=== PATIENT | female | born 1985 | race Caucasian/White ===

== ENCOUNTER → 2017-05-25 | Outpatient (CLI) | payer OTHER | LOC: M RAD 10:59 | DX: Z34.80 Encounter for supervision of other normal pregnancy, unspecified trimester (principal) | CPT/HCPCS: 76801 ==

== ENCOUNTER → 2017-09-04 | Outpatient (CLI) | payer OTHER | LOC: M RAD 11:51 | DX: Z34.82 Encounter for supervision of other normal pregnancy, second trimester (principal) | CPT/HCPCS: 76811 ==

== ENCOUNTER → 2017-09-21 | Outpatient (CLI) | payer OTHER | LOC: M RAD 12:33 | DX: Z34.82 Encounter for supervision of other normal pregnancy, second trimester (principal) | CPT/HCPCS: 76816 ==

== ENCOUNTER → 2017-11-03 | Outpatient (CLI) | payer OTHER ==
[2017-11-03 17:51] LABS: BASO % 0.3 % (0.0-1.0); EOS # 0.1 10^3/uL (0.0-0.50); EOS % 0.6 % (0.0-3.0); HEMATOCRIT 31.1 % (36.0-47.0); HEMOGLOBIN 10.2 g/dl (12.0-15.5); IMMATURE GRANULOCYTE % 0.6 % (0-3.0); LYMPH # 1.4 10^3/uL (1.5-4.5); LYMPH % 12.9 % (24.0-44.0); MEAN CORPUSCULAR HEMOGLOBIN 30.2 pg (27.0-33.0); MEAN CORPUSCULAR HGB CONC 32.8 g/dl (32.0-36.5); MONO # 0.5 10^3/uL (0.0-0.8); MONO % 4.7 % (0.0-5.0); NEUTROPHILS # 8.8 10^3/uL (1.8-7.7); NEUTROPHILS % 80.9 % (36.0-66.0); PLATELET COUNT, AUTOMATED 270 10^3/uL (150-450); RED BLOOD COUNT 3.38 10^6/uL (4.00-5.40); RED CELL DISTRIBUTION WIDTH 14.4 % (11.5-14.5); WHITE BLOOD COUNT 10.9 10^3/uL (4.0-10.0)
[2017-11-03 18:39] LABS: GLUCOSE CHALLENGE TEST 1 HOUR 123 MG/DL (LESS THAN 140)
== END ==
LOC: M WUC 12:55
DX: Z34.82 Encounter for supervision of other normal pregnancy, second trimester (principal)
CPT/HCPCS: 82950

== ENCOUNTER → 2017-12-03 | Outpatient (REF) | payer OTHER | LOC: M LAB REF 16:45 | DX: J06.9 Acute upper respiratory infection, unspecified (principal) ==

== ENCOUNTER → 2018-01-03 | Outpatient (REF) | payer OTHER | LOC: M LAB REF 13:32 | DX: Z34.83 Encounter for supervision of other normal pregnancy, third trimester (principal) ==

== ENCOUNTER → 2018-05-01 | Outpatient (REF) | payer OTHER ==
[~2018-05-01] MED LIST: IBUP-1114 PO; IBUP80TA PO; IRON27TA2 PO; MAPA500T2 PO; PRENTAB9 PO; VITAPRTA PO
[2018-05-03 14:22] LABS: HPV HYBRID CAPTURE II Negative (Negative)
== END ==
LOC: M LAB REF 17:25
PROVIDERS: ATTEND Advanced Practice Midwife
DX: Z12.4 Encounter for screening for malignant neoplasm of cervix (principal); Z11.51 Encounter for screening for human papillomavirus (HPV)

== ENCOUNTER → 2019-01-14 | Outpatient (CLI) | payer OTHER ==
[2019-01-14 12:31] LABS: HEMATOCRIT 42.7 % (36.0-47.0); HEMOGLOBIN 13.3 g/dl (12.0-15.5); MEAN CORPUSCULAR HEMOGLOBIN 29.5 pg (27.0-33.0); MEAN CORPUSCULAR HGB CONC 31.1 g/dl (32.0-36.5); MEAN CORPUSCULAR VOLUME 94.7 fl (80.0-96.0); PLATELET COUNT, AUTOMATED 302 10^3/uL (150-450); RED BLOOD COUNT 4.51 10^6/uL (4.00-5.40); WHITE BLOOD COUNT 8.5 10^3/uL (4.0-10.0)
[2019-01-14 12:35] LABS: BLOOD UREA NITROGEN 10 MG/DL (7-18); CALCIUM LEVEL 9.5 MG/DL (8.5-10.1); CARBON DIOXIDE LEVEL 27 MEQ/L (21-32); CHLORIDE LEVEL 109 MEQ/L (98-107); CREATININE FOR GFR 0.82 MG/DL (0.55-1.30); GLOMERULAR FILTRATION RATE > 60.0 (>60); GLUCOSE, FASTING 85 MG/DL (70-100); POTASSIUM SERUM 3.8 MEQ/L (3.5-5.1); SODIUM LEVEL 141 MEQ/L (136-145)
[2019-01-14 12:51] LABS: BACTERIA, URINE AUTO 1+ (NEGATIVE); CALCIUM OXALATE CRYSTALS SMALL; MUCUS, URINE SMALL (NEGATIVE); RBC, URINE AUTO TNTC /HPF (0-3); SQUAMOUS EPITHELIAL CELL UR AU 12 /HPF (0-6); WBC, URINE AUTO 20 /HPF (0-3)
== END ==
LOC: M WUC 09:10
PROVIDERS: ATTEND Nurse Practitioner Family
DX: R10.32 Left lower quadrant pain (principal)

== ENCOUNTER → 2019-02-04 | Outpatient (REF) | payer OTHER ==
[2019-02-04 21:40] LABS: APPEARANCE, URINE HAZY (CLEAR); BACTERIA, URINE AUTO NEGATIVE (NEGATIVE); BILIRUBIN, URINE AUTO NEGATIVE (NEGATIVE); BLOOD, URINE BLOOD 3+ (NEGATIVE); CALCIUM OXALATE CRYSTALS SMALL; COLOR, URINE YELLOW (YELLOW); GLUCOSE, URINE (UA) AUTO NEGATIVE (NEGATIVE); KETONE, URINE AUTO NEGATIVE (NEGATIVE); LEUKOCYTE ESTERASE, URINE AUTO TRACE (NEGATIVE); MUCUS, URINE SMALL (NEGATIVE); NITRITE, URINE AUTO NEGATIVE (NEGATIVE); PROTEIN, URINE AUTO 1+ mg/dL (NEGATIVE); RBC, URINE AUTO TNTC /HPF (0-3); SPECIFIC GRAVITY URINE AUTO 1.027 (1.002-1.035); SQUAMOUS EPITHELIAL CELL UR AU 2 /HPF (0-6); WBC, URINE AUTO 9 /HPF (0-3)
== END ==
LOC: M LAB REF 09:21
PROVIDERS: ATTEND Physician Assistant Medical
DX: N39.0 Urinary tract infection, site not specified (principal)

== ENCOUNTER 2019-04-02 08:41 | Emergency (ER) | payer OTHER ==
[~2019-04-02] VITALS: Ht 167.6 cm; Wt 81.0 kg
[2019-04-02] MEDS ORDERED: PORTTAB PO (08:48)
[2019-04-02] MEDS ORDERED: NS 1,000 ML IV ONE (09:30)
[2019-04-02] MEDS ORDERED: KETOROLAC 30 MG/ML VIAL (J1885) IV ONE (09:30)
[2019-04-02] MEDS ORDERED: ONDANSETRON 4MG/2ML VIAL (J2405) IV ONE (09:30)
[2019-04-02 09:47] LABS: BASO # 0.1 10^3/uL (0.0-0.2); BASO % 0.9 % (0.0-1.0); EOS # 0.1 10^3/uL (0.0-0.5); EOS % 0.7 % (0.0-3.0); HEMATOCRIT 41.9 % (36.0-47.0); HEMOGLOBIN 12.9 g/dl (12.0-15.5); LYMPH # 1.4 10^3/uL (1.5-5.0); LYMPH % 20.6 % (24.0-44.0); MEAN CORPUSCULAR HEMOGLOBIN 28.5 pg (27.0-33.0); MEAN CORPUSCULAR HGB CONC 30.8 g/dl (32.0-36.5); MEAN CORPUSCULAR VOLUME 92.7 fl (80.0-96.0); MONO # 0.3 10^3/uL (0.0-0.8); MONO % 3.9 % (0.0-5.0); NEUTROPHILS # 4.9 10^3/uL (1.5-8.5); NEUTROPHILS % 73.6 % (36.0-66.0); PLATELET COUNT, AUTOMATED 269 10^3/uL (150-450); RED BLOOD COUNT 4.52 10^6/uL (4.00-5.40); WHITE BLOOD COUNT 6.7 10^3/uL (4.0-10.0)
[2019-04-02 10:08] LABS: ALBUMIN 3.6 GM/DL (3.2-5.2); ALT/SGPT 13 U/L (12-78); BILIRUBIN,DIRECT < 0.1 MG/DL (0.0-0.2); BILIRUBIN,TOTAL 0.3 MG/DL (0.2-1.0); LIPASE 72 U/L (73-393); TOTAL PROTEIN 7.1 GM/DL (6.4-8.2)
[2019-04-02] MEDS ORDERED: CIPR-249 PO (10:25)
[2019-04-02] MEDS ORDERED: ONDA4TAB6 PO (10:25)
[2019-04-02 10:41] VITALS: BP 122/79
== END 2019-04-02 10:55 | disposition home or self-care (01) ==
LOC: M ED 08:41
DX: N30.00 Acute cystitis without hematuria (principal); Z79.3 Long term (current) use of hormonal contraceptives
CPT/HCPCS: 36415; 80047; 80076; 81001; 83690; 85025; 87086; 96374; 96375; 99284; J1885; J2405

== ENCOUNTER → 2019-08-05 | Outpatient (REF) | payer OTHER ==
[~2019-08-05] MED LIST changes: +CIPR-249 PO; +ONDA4TAB6 PO; +PORTTAB PO
[2019-08-06 11:47] LABS: APPEARANCE, URINE TURBID (CLEAR); BACTERIA, URINE AUTO 1+ (NEGATIVE); BILIRUBIN, URINE AUTO NEGATIVE (NEGATIVE); BLOOD, URINE BLOOD 1+ (NEGATIVE); COLOR, URINE YELLOW (YELLOW); GLUCOSE, URINE (UA) AUTO NEGATIVE (NEGATIVE); KETONE, URINE AUTO NEGATIVE (NEGATIVE); LEUKOCYTE ESTERASE, URINE AUTO 3+ (NEGATIVE); MUCUS, URINE SMALL (NEGATIVE); NITRITE, URINE AUTO NEGATIVE (NEGATIVE); PROTEIN, URINE AUTO 1+ mg/dL (NEGATIVE); RBC, URINE AUTO 16 /HPF (0-3); SPECIFIC GRAVITY URINE AUTO 1.019 (1.002-1.035); SQUAMOUS EPITHELIAL CELL UR AU 3 /HPF (0-6); UROBILINOGEN, URINE AUTO 0.2 mg/dL (0.0-2.0); WBC, URINE AUTO 80 /HPF (0-3)
== END ==
LOC: M LAB REF 10:58
PROVIDERS: ATTEND Physician Assistant Medical
DX: N39.0 Urinary tract infection, site not specified (principal)

== ENCOUNTER → 2019-08-30 | Outpatient (REF) | payer OTHER ==
[2019-08-30 17:44] LABS: APPEARANCE, URINE CLOUDY (CLEAR); BACTERIA, URINE AUTO 3+ (NEGATIVE); BILIRUBIN, URINE AUTO NEGATIVE (NEGATIVE); BLOOD, URINE BLOOD NEGATIVE (NEGATIVE); COLOR, URINE AMBER (YELLOW); GLUCOSE, URINE (UA) AUTO NEGATIVE (NEGATIVE); KETONE, URINE AUTO NEGATIVE (NEGATIVE); LEUKOCYTE ESTERASE, URINE AUTO 2+ (NEGATIVE); MUCUS, URINE LARGE (NEGATIVE); NITRITE, URINE AUTO POSITIVE (NEGATIVE); PROTEIN, URINE AUTO 1+ mg/dL (NEGATIVE); RBC, URINE AUTO 3 /HPF (0-3); SPECIFIC GRAVITY URINE AUTO 1.025 (1.002-1.035); SQUAMOUS EPITHELIAL CELL UR AU 2 /HPF (0-6); WBC, URINE AUTO 84 /HPF (0-3)
== END ==
LOC: M LAB 17:14
PROVIDERS: ATTEND Physician Assistant Medical
DX: R30.0 Dysuria (principal)

== ENCOUNTER → 2019-10-28 | Outpatient (REF) | payer OTHER ==
[2019-10-28 19:05] LABS: AMORPHOUS SEDIMENT SMALL (NEGATIVE); APPEARANCE, URINE CLOUDY (CLEAR); BACTERIA, URINE AUTO 1+ (NEGATIVE); BILIRUBIN, URINE AUTO NEGATIVE (NEGATIVE); BLOOD, URINE BLOOD NEGATIVE (NEGATIVE); COLOR, URINE YELLOW (YELLOW); GLUCOSE, URINE (UA) AUTO NEGATIVE (NEGATIVE); KETONE, URINE AUTO NEGATIVE (NEGATIVE); LEUKOCYTE ESTERASE, URINE AUTO 3+ (NEGATIVE); MUCUS, URINE SMALL (NEGATIVE); NITRITE, URINE AUTO NEGATIVE (NEGATIVE); PROTEIN, URINE AUTO NEGATIVE (NEGATIVE); RBC, URINE AUTO 3 /HPF (0-3); SPECIFIC GRAVITY URINE AUTO 1.016 (1.002-1.035); SQUAMOUS EPITHELIAL CELL UR AU 5 /HPF (0-6); UROBILINOGEN, URINE AUTO 0.2 mg/dL (0.0-2.0); WBC, URINE AUTO 7 /HPF (0-3)
== END ==
LOC: M LAB REF 17:12
PROVIDERS: ATTEND Physician Assistant Medical
DX: N39.0 Urinary tract infection, site not specified (principal)

== ENCOUNTER → 2019-11-19 | Outpatient (REF) | payer OTHER ==
[2019-11-19 22:12] LABS: APPEARANCE, URINE HAZY (CLEAR); BACTERIA, URINE AUTO NEGATIVE (NEGATIVE); BILIRUBIN, URINE AUTO NEGATIVE (NEGATIVE); BLOOD, URINE BLOOD NEGATIVE (NEGATIVE); CALCIUM OXALATE CRYSTALS SMALL; COLOR, URINE YELLOW (YELLOW); GLUCOSE, URINE (UA) AUTO NEGATIVE (NEGATIVE); KETONE, URINE AUTO NEGATIVE (NEGATIVE); LEUKOCYTE ESTERASE, URINE AUTO 2+ (NEGATIVE); MUCUS, URINE SMALL (NEGATIVE); NITRITE, URINE AUTO NEGATIVE (NEGATIVE); PROTEIN, URINE AUTO NEGATIVE (NEGATIVE); RBC, URINE AUTO 2 /HPF (0-3); SQUAMOUS EPITHELIAL CELL UR AU 6 /HPF (0-6); UROBILINOGEN, URINE AUTO 0.2 mg/dL (0.0-2.0); WBC, URINE AUTO 12 /HPF (0-3)
== END ==
LOC: M LAB REF 21:42
PROVIDERS: ATTEND Physician Assistant
DX: N39.0 Urinary tract infection, site not specified (principal)

== ENCOUNTER → 2020-01-01 | Outpatient (REF) | payer OTHER ==
[2020-01-02 00:04] LABS: APPEARANCE, URINE HAZY (CLEAR); BACTERIA, URINE AUTO NEGATIVE (NEGATIVE); BILIRUBIN, URINE AUTO NEGATIVE (NEGATIVE); BLOOD, URINE BLOOD 1+ (NEGATIVE); COLOR, URINE STRAW (YELLOW); GLUCOSE, URINE (UA) AUTO NEGATIVE (NEGATIVE); KETONE, URINE AUTO NEGATIVE (NEGATIVE); LEUKOCYTE ESTERASE, URINE AUTO 3+ (NEGATIVE); MUCUS, URINE SMALL (NEGATIVE); NITRITE, URINE AUTO NEGATIVE (NEGATIVE); PROTEIN, URINE AUTO NEGATIVE (NEGATIVE); RBC, URINE AUTO 6 /HPF (0-3); SPECIFIC GRAVITY URINE AUTO 1.002 (1.002-1.035); SQUAMOUS EPITHELIAL CELL UR AU 7 /HPF (0-6); UROBILINOGEN, URINE AUTO 0.2 mg/dL (0.0-2.0); WBC, URINE AUTO 13 /HPF (0-3)
== END ==
LOC: M LAB REF 23:19
PROVIDERS: ATTEND Physician Assistant
DX: N39.0 Urinary tract infection, site not specified (principal)

== ENCOUNTER 2020-04-23 04:30 | Emergency (ER) | payer OTHER ==
[~2020-04-23] VITALS: Ht 167.6 cm; Wt 92.6 kg
--- OUTSIDE RECORDS SUMMARY | 2020-04-23 04:35 | CCD ---
Author Author [facility] Organization [facility] Address Unknown Phone Unavailable Support Name Relationship Address Phone [place] [address] CONVERGYS Next Of [address] [place] [address] STREAM Next Of [address] [place] [address] NAPOLEON BLANCO Next Of Kin [address] [place] [address] HARSHAD Geraldo REIS Next Of Kin [address] [place] [address] Re-disclosure Warning The records that you are about to access may contain information from federally-assisted alcohol or drug abuse programs. If such information is present, then the following federally mandated warning applies: This information has been disclosed to you from records protected by federal confidentiality rules (42 CFR part 2). The federal rules prohibit you from making any further disclosure of this information unless further disclosure is expressly permitted by the written consent of the person to whom it pertains or as otherwise permitted by 42 CFR part 2. A general authorization for the release of medical or other information is NOT sufficient for this purpose. The Federal rules restrict any use of the information to criminally investigate or prosecute any alcohol or drug abuse patient.The records that you are about to access may contain highly sensitive health information, the redisclosure of which is protected by Article 27-F of the [place] State Public Health law. If you continue you may have access to information: Regarding HIV / AIDS; Provided by facilities licensed or operated by the [facility] Office of Mental Health; or Provided by the [facility] Office for People With Developmental Disabilities. If such information is present, then the following [facility] mandated warning applies: This information has been disclosed to you from confidential records which are protected by state law. State law prohibits you from making any further disclosure of this information without the specific written consent of the person to whom it pertains, or as otherwise permitted by law. Any unauthorized further disclosure in violation of state law may result in a fine or group home sentence or both. A general authorization for the release of medical or other information is NOT sufficient authorization for further disc losure. Family History Family Member Name Family Member Gender Family Member Status Date o f Status Description Data Source(s) Unknown Unknown Problem MEDENT ([facility]) Unknown Unknown Problem MEDENT ([facility]) Medications Medication Brand Name Start Date Product Form Dose Route Admi nistrative Instructions Pharmacy Instructions Status Indications Reaction Description Data Source(s) 150 mg 01/12/2020 12:00:00 AM EST tablet 2 TAKE ONE TABLET BY MOUTH ONCE FOR ONE DAY TAKE ONE TABLET BY MOUTH ONCE FOR ONE DAY SOLD: 01/12/2020 [facility] Cephalexin 500 MG Oral Capsule CEPHALEXIN 01/01/2020 12:00:00 AM EDT capsule 21 TAKE ONE CAPSULE BY MOUTH THREE TIMES A DAY FOR 7 DAYS TAKE ONE CAPSULE BY MOUTH THREE TIMES A DAY FOR 7 DAYS SOLD: 01/01/2020 [facility] Metronidazole 500 MG Oral Tablet METRONIDAZOLE 11/19/2019 12:0 0:00 AM EDT tablet 14 TAKE ONE TABLET BY MOUTH TWICE A DAY TAKE ONE TABLET BY MOUTH TWICE A DAY SOLD: 11/19/2019 [facility] Cephalexin 500 MG Oral Capsule CEPHALEXIN 10/28/2019 12:00:00 AM EDT capsule 15 TAKE ONE CAPSULE BY MOUTH THREE TIMES A DAY FOR 5 DAYS TAKE ONE CAPSULE BY MOUTH THREE TIMES A DAY FOR 5 DAYS SOLD: 10/28/2019 [facility] 500 mg 09/15/2019 12:00:00 AM EDT tablet 14 TAKE ONE TABLET BY MOUTH TWICE A DAY FOR 7 DAYS TAKE ONE TABLET BY MOUTH TWICE A DAY FOR 7 DAYS SOLD: 2019 [facility] 100 mg 08/30/2019 12:00:00 AM EDT capsule 14 TAKE ONE CAPSULE BY MOUTH TWICE A DAY FOR 7 DAYS TAKE ONE CAPSULE BY MOUTH TWICE A DAY FOR 7 DAYS SOLD: 08/30/2019 [facility] 300 mg 08/05/2019 12:00:00 AM EDT capsule 14 TAKE ONE CAPSULE BY MOUTH EVERY 12 HOURS FOR 7 DAYS TAKE ONE CAPSULE BY MOUTH EVERY 12 HOURS FOR 7 DAYS SO LD: 08/05/2019 [facility] 100 mg 07/19/2019 12:00:00 AM EDT capsule 14 TAKE ONE CAPSULE BY MOUTH TWICE A DAY FOR 7 DAYS TAKE ONE CAPSULE BY MOUTH TWICE A DAY FOR 7 DAYS SOLD: 07/19/2019 [facility] Metronidazole 500 MG Oral Tablet METRONIDAZOLE 07/06/2019 12:0 0:00 AM EDT tablet 14 TAKE ONE TABLET BY MOUTH TWICE A DAY FOR 7 DAYS TAKE ONE TABLET BY MOUTH TWICE A DAY FOR 7 DAYS SOLD: 07/06/2019 [facility] 10 mg 06/28/2019 12:00:00 AM EDT capsule 30 TAKE ONE CAPSULE BY MOUTH EVERY DAY TAKE ONE CAPSULE BY MOUTH EVERY DAY SOLD: 07/06/2019 [facility] Lillow 28 Day Pack 0.15-0.03 mg LEVONORGESTREL/ETHINYL ESTRA DIOL 06/27/2019 12:00:00 AM EDT tablet 84 TAKE ONE TABLET BY MOUTH EVERY DAY TAKE ONE TABLET BY MOUTH EVERY DAY SOLD: 09/15/2019 [facility] Day [facility] 0.15-0.03 mg LEVONORGESTREL/ETHINYL ESTRA DIOL 06/27/2019 12:00:00 AM EDT tablet 84 TAKE ONE TABLET BY MOUTH EVERY DAY TAKE ONE TABLET BY MOUTH EVERY DAY SOLD: 06/28/2019 [facility] venlafaxine 37.5 MG Oral Tablet VENLAFAXINE HCL 05/28/2019 12:00 :00 AM EDT tablet 30 TAKE ONE TABLET BY MOUTH EVERY D AY TAKE ONE TABLET BY MOUTH EVERY DAY SOLD: 05/28/2019 [facility] 875 mg 05/05/2019 12:00:00 AM EST tablet 20 TAKE ONE TABLET BY MOUTH EVERY 12 HOURS FOR 10 DAYS TAKE ONE TABLET BY MOUTH EVERY 12 HOURS FOR 10 DAYS SO LD: 05/05/2019 [facility] 20 mg 04/15/2019 12:00:00 AM EST capsule,delayed release (DR/EC) 30 TAKE ONE CAPSULE BY MOUTH EVERY DAY TAKE ONE CAPSULE BY MOUTH EVERY DAY SOLD: 04/15/2019 [facility] 500 mg 04/02/2019 12:00:00 AM EST tablet 20 TAKE ONE TABLET BY MOUTH TWICE A DAY TAKE ONE TABLET BY MOUTH TWICE A DAY SOLD: 04/02/2019 [facility] 4 mg 04/02/2019 12:00:00 AM EST tablet,disintegrating 1 6 DISSOLVE ONE TABLET ON TONGUE EVERY 6 TO 8 HOURS NEEDED FOR NAUSEA AND VOMITING DISSOLVE ONE TABLET ON TONGUE EVERY 6 TO 8 HOURS NEEDED FOR NAUSEA AND VOMITING SOLD: 04/02/2019 [facility] 500 mg 02/28/2019 12:00:00 AM EST tablet 14 TAKE ONE TABLET BY MOUTH TWICE A DAY FOR 7 DAYS TAKE ONE TABLET BY MOUTH TWICE A DAY FOR 7 DAYS SOLD: 2018 [facility] 50 mcg/actuation 02/28/2019 12:00:00 AM EST spray,suspension 16 SPRAY TWO SPRAYS IN EACH NOSTRIL ONCE A DAY SPRAY TWO SPRAYS IN EACH NOSTRIL ONCE A DAY SOLD: 02/28/2019 [facility] 10 mg 11/10/2018 12:00:00 AM EDT tablet 30 TAKE ONE TABLET BY MOUTH EVERY DAY TAKE ONE TABLET BY MOUTH EVERY DAY SOLD: 02/28/2019 [facility] 0.15-0.03 mg 08/02/2018 12:00:00 AM EDT tablet 84 TAKE ONE TABLET BY MOUTH EVERY DAY TAKE ONE TABLET BY MOUTH EVERY DAY SOLD: 03/16/2019 [facility] Insurance Providers Payer name Policy type / Coverage type Policy ID Covered green party ID Covered green party's relationship to larsen Policy Larsen Plan Information [facility] [id number] SP [id number] [facility] Health Maintenance Organization (HMO) [id number] Self [id number] [facility] Health Maintenance Organization (HMO) [id number] Self [id number] [facility] Health Maintenance Organization (O) [id number] Self [id number] SELF PAY O [id number] S [id number] [facility] O [id number] S [id number] [facility] COMM[facility]AN MCDO [id number] SP [id number] [facility] Health Maintenance Organization (HMO) [id number] Self [id number] [facility] Health Maintenance Organization (HMO) Self MEDICAID [id number] SP [id number] Results ID Date Data Source [id number] 03/11/2020 12:00:00 AM EST [facility] Name Value Range Interpretation Code Description Data Libertad rce(s) Supporting Document(s) SARS-CoV2 Rapid Antigen Negative [facility] This lab was ordered by [facility] and reported by [facility]. Procedure
--- OUTSIDE RECORDS SUMMARY | 2020-04-23 05:49 | CCD ---
Author Author [facility] Organization [facility] Address Unknown Phone Unavailable Support Name Relationship Address Phone [place] [address] CONVERGYS Next Of Kin [address] [place] [address] STREAM Next Of Kin [address] [place] [address] NAPOLEON BLANCO Next Of Kin [address] [place] [address] HARSHAD Geraldo REIS Next Of Kin [address] [place] [address] Re-disclosure Warning The records that you are [...] is protected by Article 27-F of the [place] State Public Health law. If you continue you may have access to information: Regarding HIV / AIDS; Provided by facilities licensed or operated by the [facility] Office of Mental Health; or Provided by the [facility] Office for People With Developmental Disabilities. If such information is present, then the following [facility] mandated warning applies: This information has been [...] law may result in a fine or half-way sentence or both. A general authorization for the release of medical or other information is NOT sufficient authorization for further disc losure. Family History Family Member Name Family Member Gender Family Member Status Date o f Status Description Data Source(s) Unknown Unknown Problem MEDENT ([facility]) Unknown Unknown Problem MEDENT ([facility], [facility]) Medications Medication Brand Name Start Date Product [...] EVERY DAY SOLD: 09/15/2019 [facility] 28 Day Pack 0.15-0.03 mg LEVONORGESTREL/ETHINYL ESTRA [...] type / Coverage type Policy ID Covered alliance party ID Covered alliance party's relationship to larsen Policy Larsen Plan Information [facility] [id number] SP [id number] [facility] [id number] SP [id number] [facility] Health Maintenance Organization (HMO) [id number] Self [id number] [facility] Health Maintenance Organization (HMO) [id number] Self [id number] [facility] Health Maintenance Organization (O) [id number] Self [id number] SELF PAY O [id number] S [id number] [facility]) O [id number] S [id number] [facility] [id number] SP [id number] [facility] Health Maintenance Organization (HMO) [id number] Self [id number] [facility] Health Maintenance Organization (O) Self MEDICAID [id number] SP [id number] Results ID Date Data Source [id number] 03/11/2020 12:00:00 AM EST [facility] Name Value Range Interpretation Code Description Data Libertad rce(s) Supporting Document(s) SARS-CoV2 Rapid Antigen Negative [facility] and reported by [facility]. Procedure
[2020-04-23] MEDS ORDERED: KETOROLAC 30 MG/ML 1ML VIAL IV ONE (06:15)
--- NOTE | 2020-04-23 06:33 | REPVR ---
PROCEDURE INFORMATION: Exam: CT Abdomen And Pelvis Without Contrast Exam date and time: 04/23/2020 5:26 AM Age: 34 years old Clinical indication: Abdominal pain; Flank; Left; Additional info: Left flank pain TECHNIQUE: Imaging protocol: Computed tomography of the abdomen and pelvis without contrast. Radiation optimization: All CT scans at this facility use at least one of these dose optimization techniques: automated exposure control; mA and/or kV adjustment per patient size (includes targeted exams where dose is matched to clinical indication); or iterative reconstruction. COMPARISON: US OBS FOLL UP OR REPEAT EACH GES 09/21/2017 12:52 PM FINDINGS: Liver: Normal. No mass. Gallbladder and bile ducts: Normal. No calcified stones. No ductal dilation. Pancreas: Normal. No ductal dilation. Spleen: Normal. No splenomegaly. Adrenal glands: Normal. No mass. Kidneys and ureters: Mild left hydroureteronephrosis to the level of a 3 mm calculus in the distal left ureter. Nonobstructive bilateral nephrolithiasis. 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 Stomach and bowel: Unremarkable. No obstruction. No mucosal thickening. Appendix: No evidence of appendicitis. Intraperitoneal space: Unremarkable. No free air. No significant fluid collection. Vasculature: Unremarkable. No abdominal aortic aneurysm. Lymph nodes: Unremarkable. No enlarged lymph nodes. Urinary bladder: Unremarkable as visualized. Reproductive: Unremarkable as visualized. Bones/joints: Unremarkable. No acute fracture. Soft tissues: Fat containing umbilical hernia. IMPRESSION: Mild left hydroureteronephrosis to the level of a 3 mm calculus in the distal left ureter. Electronically signed by: Johan Choudhury On 04/23/2020 06:11:31 AM
[2020-04-23] MEDS ORDERED: KETO10TAB PO (08:02)
[2020-04-23 08:27] VITALS: BP 124/76
== END 2020-04-23 08:20 | disposition home or self-care (01) ==
LOC: M ED 04:30
DX: N13.2 Hydronephrosis with renal and ureteral calculous obstruction (principal); Z87.442 Personal history of urinary calculi; Z79.3 Long term (current) use of hormonal contraceptives
CPT/HCPCS: 74176; 81001; 87086; 99284; J1885

== ENCOUNTER → 2020-06-07 | Outpatient (CLI) | payer SELFPAY ==
[~2020-06-07] MED LIST changes: +KETO10TAB PO
== END ==
LOC: M LABSMTC 09:30
PROVIDERS: ATTEND Pediatrics
DX: Z20.822 Contact with and (suspected) exposure to COVID-19 (principal)

== ENCOUNTER → 2020-06-21 | Outpatient (REF) | payer OTHER ==
[2020-06-21 19:11] LABS: APPEARANCE, URINE CLEAR (CLEAR); BACTERIA, URINE AUTO NEGATIVE (NEGATIVE); BILIRUBIN, URINE AUTO NEGATIVE (NEGATIVE); BLOOD, URINE BLOOD 3+ (NEGATIVE); COLOR, URINE YELLOW (YELLOW); GLUCOSE, URINE (UA) AUTO NEGATIVE (NEGATIVE); KETONE, URINE AUTO NEGATIVE (NEGATIVE); LEUKOCYTE ESTERASE, URINE AUTO TRACE (NEGATIVE); MUCUS, URINE SMALL (NEGATIVE); NITRITE, URINE AUTO NEGATIVE (NEGATIVE); PROTEIN, URINE AUTO 1+ mg/dL (NEGATIVE); RBC, URINE AUTO 3 /HPF (0-3); SPECIFIC GRAVITY URINE AUTO 1.026 (1.002-1.035); SQUAMOUS EPITHELIAL CELL UR AU 1 /HPF (0-6); WBC, URINE AUTO 10 /HPF (0-3)
== END ==
LOC: M LAB REF 16:30
PROVIDERS: ATTEND Physician Assistant Medical
DX: N39.0 Urinary tract infection, site not specified (principal)

== ENCOUNTER → 2020-10-16 | Outpatient (REF) | payer OTHER ==
[2020-10-16 18:11] LABS: APPEARANCE, URINE CLOUDY (CLEAR); BACTERIA, URINE AUTO NEGATIVE (NEGATIVE); BILIRUBIN, URINE AUTO NEGATIVE (NEGATIVE); BLOOD, URINE BLOOD 3+ (NEGATIVE); COLOR, URINE YELLOW (YELLOW); GLUCOSE, URINE (UA) AUTO NEGATIVE (NEGATIVE); KETONE, URINE AUTO NEGATIVE (NEGATIVE); LEUKOCYTE ESTERASE, URINE AUTO NEGATIVE (NEGATIVE); MUCUS, URINE SMALL (NEGATIVE); NITRITE, URINE AUTO NEGATIVE (NEGATIVE); PROTEIN, URINE AUTO 1+ mg/dL (NEGATIVE); RBC, URINE AUTO TNTC /HPF (0-3); SPECIFIC GRAVITY URINE AUTO 1.019 (1.002-1.035); SQUAMOUS EPITHELIAL CELL UR AU 8 /HPF (0-6); UROBILINOGEN, URINE AUTO 0.2 mg/dL (0.0-2.0); WBC, URINE AUTO 4 /HPF (0-3)
== END ==
LOC: M LAB REF 17:41
PROVIDERS: ATTEND Physician Assistant
DX: N39.0 Urinary tract infection, site not specified (principal)

== ENCOUNTER 2020-10-24 23:18 | Emergency (ER) | payer OTHER ==
[~2020-10-24] VITALS: Ht 167.6 cm; Wt 86.9 kg
[2020-10-25 03:59] LABS: BASO # 0.1 10^3/uL (0.0-0.2); BASO % 0.5 % (0.0-1.0); EOS # 0.1 10^3/uL (0.0-0.5); EOS % 0.6 % (0.0-3.0); HEMATOCRIT 37.3 % (36.0-47.0); HEMOGLOBIN 12.5 g/dl (12.0-15.5); LYMPH # 1.6 10^3/uL (1.5-5.0); LYMPH % 14.7 % (24.0-44.0); MEAN CORPUSCULAR HEMOGLOBIN 30.1 pg (27.0-33.0); MEAN CORPUSCULAR HGB CONC 33.5 g/dl (32.0-36.5); MEAN CORPUSCULAR VOLUME 89.9 fl (80.0-96.0); MONO # 0.7 10^3/uL (0.0-0.8); MONO % 6.6 % (2.0-8.0); NEUTROPHILS # 8.3 10^3/uL (1.5-8.5); NEUTROPHILS % 77.3 % (36.0-66.0); PLATELET COUNT, AUTOMATED 224 10^3/uL (150-450); RED BLOOD COUNT 4.15 10^6/uL (4.00-5.40); WHITE BLOOD COUNT 10.8 10^3/uL (4.0-10.0)
[2020-10-25] MEDS ORDERED: ISOVUE-370 76% 100ML VIAL As Ordered ONE (04:06)
[2020-10-25 04:11] LABS: APPEARANCE, URINE CLEAR (CLEAR); BACTERIA, URINE AUTO 1+ (NEGATIVE); BILIRUBIN, URINE AUTO NEGATIVE (NEGATIVE); BLOOD, URINE BLOOD 1+ (NEGATIVE); COLOR, URINE YELLOW (YELLOW); GLUCOSE, URINE (UA) AUTO NEGATIVE (NEGATIVE); KETONE, URINE AUTO 1+ mg/dL (NEGATIVE); LEUKOCYTE ESTERASE, URINE AUTO 1+ (NEGATIVE); MUCUS, URINE SMALL (NEGATIVE); NITRITE, URINE AUTO NEGATIVE (NEGATIVE); PROTEIN, URINE AUTO NEGATIVE (NEGATIVE); RBC, URINE AUTO 5 /HPF (0-3); SPECIFIC GRAVITY URINE AUTO 1.016 (1.002-1.035); SQUAMOUS EPITHELIAL CELL UR AU 2 /HPF (0-6); UROBILINOGEN, URINE AUTO 0.2 mg/dL (0.0-2.0); WBC, URINE AUTO 11 /HPF (0-3)
[2020-10-25 04:39] LABS: ALBUMIN 3.6 GM/DL (3.2-5.2); BILIRUBIN,DIRECT 0.2 MG/DL (0.0-0.2); BILIRUBIN,TOTAL 0.5 MG/DL (0.2-1.0); TOTAL PROTEIN 6.6 GM/DL (6.4-8.2)
--- NOTE | 2020-10-25 05:29 | REPVR ---
PROCEDURE INFORMATION: Exam: CT Abdomen And Pelvis With Contrast Exam date and time: 10/25/2020 4:48 AM Age: 35 years old Clinical indication: Other: Right flank pain, pyelo/appendix ws ureteral stone TECHNIQUE: Imaging protocol: Computed tomography of the abdomen and pelvis with contrast. Radiation optimization: All CT scans at this facility use at least one of these dose optimization techniques: automated exposure control; mA and/or kV adjustment per patient size (includes targeted exams where dose is matched to clinical indication); or iterative reconstruction. Contrast material: ISOVUE 370; Contrast volume: 100 ml; Contrast route: INTRAVENOUS (IV); COMPARISON: CT ABD PELVIS W/O CONTRAST 04/23/2020 5:32 AM FINDINGS: Liver: Hepatomegaly. Gallbladder and bile ducts: Normal. No calcified stones. No ductal dilation. Pancreas: Normal. No ductal dilation. Spleen: Normal. No splenomegaly. Adrenal glands: Normal. No mass. Kidneys and ureters: Moderate right hydroureteronephrosis to the level of a 7 x 5 mm calculus distal right ureter. Nonobstructive bilateral nephrolithiasis. Subcentimeter indeterminate low-attenuation exophytic lesion left kidney, too small to characterize. Stomach and bowel: Unremarkable. No obstruction. No mucosal thickening. Appendix: No evidence of appendicitis. Intraperitoneal space: Trace pelvic ascites. Vasculature: Unremarkable. No abdominal aortic aneurysm. Lymph nodes: Unremarkable. No enlarged lymph nodes. Urinary bladder: Unremarkable as visualized. Reproductive: Asymmetric enlargement the right with a simple 2 cm cyst in the right ovary. Bones/joints: Unremarkable. No acute fracture. Soft tissues: Fat containing umbilical hernia. IMPRESSION: Moderate right hydroureteronephrosis to the level of a 7 x 5 mm calculus distal right ureter. COMMENTS: Consistent with the [employer]'s Incidental Findings Committee white paper (J Am Beto Radiol 2018): Any incidental renal lesion less than 1 cm or classified as too small to characterize, or any incidental cystic renal lesion characterized as simple-appearing, is likely benign. No follow-up imaging is recommended for these lesions per consensus recommendations based on imaging criteria. Electronically signed by: Johan Choudhury On 10/25/2020 05:28:25 AM
[2020-10-25] MEDS ORDERED: CEFDINIR 300 MG CAP (OMNICEF) PO ONE (05:35)
[2020-10-25] MEDS ORDERED: KETOROLAC 30 MG/ML 1ML VIAL IV ONE (05:35)
[2020-10-25] MEDS ORDERED: TAMSULOSIN 0.4 MG CAP PO ONE (05:35)
[2020-10-25] MEDS ORDERED: PERC5TAB12 PO (06:41)
[2020-10-25] MEDS ORDERED: KETO10TAB PO (06:41)
[2020-10-25] MEDS ORDERED: FLOM0.4C39 PO (06:41)
[2020-10-25] MEDS ORDERED: CEFD1CAP8 PO (06:41)
[2020-10-25 07:15] VITALS: BP 118/58
== END 2020-10-25 07:18 | disposition home or self-care (01) ==
LOC: M ED 23:18
DX: N13.2 Hydronephrosis with renal and ureteral calculous obstruction (principal); Z87.442 Personal history of urinary calculi; Z79.3 Long term (current) use of hormonal contraceptives
CPT/HCPCS: 74177; 80047; 80076; 81001; 83690; 84702; 85025; 96374; 99284; J1885; Q9967

== ENCOUNTER 2021-01-26 07:32 | Emergency (ER) | payer OTHER ==
[~2021-01-26] VITALS: Ht 167.6 cm; Wt 86.6 kg
[~2021-01-26 07:32] MED LIST changes: +CEFD1CAP8 PO; +FLOM0.4C39 PO; +PERC5TAB12 PO
[2021-01-26] MEDS ORDERED: PRENTAB53 PO (07:38)
--- OUTSIDE RECORDS SUMMARY | 2021-01-26 07:39 | CCD ---
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 Name Role Phone Anshu Mensah Unavailable PROBLEMS No Information ALLERGIES Allergen (clinical drug ingredient) Drug/Non Drug Allergy do cumented on EMR Reaction Allergy Type Onset Date Status tamsulosin Flomax([facility] Code:[id number]) HIVES Drug Allergy Active ENCOUNTERS from 1987 to 2020-11-25 Encounter Location Date Provider Diagnosis [facility] [address] [phone] [place] [address] Nov, Anshu Mensah Right ureteral stone N20.1 and History o f kidney stones Z87.442 IMMUNIZATIONS No Information SOCIAL HISTORY Tobacco Use: Social History Observation Description Date Details (start date - stop date) Never Smoker Sex Assigned At : Social History Observation Description Sex Assigned At Unknown Language: Question Answer Notes Languages spoken: Sudanese Sexual Hx: Question Answer Notes Had sex in the last 12 months (vaginal, oral, or anal)? Yes Have you ever had an STD? No Prevention Strategies discussed: Other with Men only Use protection? No Tobacco Use: Question Answer Notes Are you a: never smoker REASON FOR REFERRAL No Information VITAL SIGNS Weight 180 lbs Nov, Weight-kg 81.65 kg Nov, Height 66 in Nov, BMI 29.05 kg/m2 Nov, Heart Rate 71 /min Nov, Respiratory Rate 17 /min Nov, Temperature 97.1 degrees Fahrenheit Nov, Oximetry 100 Nov, Blood pressure systolic 116 mm Hg Nov, Blood pressure diastolic 60 mm Hg Nov, MEDICATIONS Medication SIG (Take, Route, Frequency, Duration) Notes Start Da te End Date Status Ketorolac Tromethamine 10 MG 1 tablet with food or mil k as needed Orally every 6 hrs for 5 day(s) Not-Taking Cefdinir 300 MG as directed Orally N ot-Taking Keflex 500 MG 1 capsule Orally Four times a day for 5 day(s) Active Flomax 0.4 MG 1 capsule Orally Once a day for 30 day(s) Active Levonorgestrel-Ethinyl Estrad Active oxyCODONE-Acetaminophen 5-325 MG 1 tablet as needed Orally every 6 hr s Not-Taking Levora 0.15/30 (28) 0.15-30 MG-MCG 1 tablet Orally Once a day fo r 28 days Jun, Not-Taking PROCEDURES No Information RESULTS No Results REASON FOR VISIT [facility] ED f/u stone MEDICAL (GENERAL) HISTORY Type Description Date Medical History Gestational HTN Medical History HX UTI Medical History abd pain Medical History low back pain Medical History kidney stones Surgical History No Surgical history information Hospitalization History [facility] Goals Section No Information Health Concerns No Information MEDICAL EQUIPMENT No Information MENTAL STATUS No Information FUNCTIONAL STATUS No Information ASSESSMENTS Encounter Date Diagnosis Assessment Notes Treatment Notes Treatm ent Clinical Notes Nov, Right ureteral stone (ICD-10 - N20.1) Nov, History of kidney stones (ICD-10 - Z87.442) PLAN OF TREATMENT Treatment Notes Test Name Order Date ABDOMEN 1 VIEW (KUB) ADM 2020-11-11 Next Appt Details 1 year with KUB Reason:Kidney stones Provider Name:Anshu Mensah, 2021-11-03 3 09:30:00 AM, [address], , [place], [address], Follow Up:1 year with Marisol stones Insurance Providers Payer Name Payer Address Payer Phone Insured Name Patient Relati onship to Insured Coverage Start Date Coverage End Date R [facility] [address] [address] [facility] [phone] MARY ANNE PATRICIA [facility] COMM[facility]AN [facility] [address] [facility] [phone] MARY ANNE PATRICIA self
--- OUTSIDE RECORDS SUMMARY | 2021-01-26 07:39 | CCD ---
Author Author [facility] Organization [facility] Address Unknown Phone Unavailable Support Name Relationship Address Phone [facility] Next Of Kin [address] [place] [address] KEYSHA LEONARD Next Of Kin [address] [place] [address] [place] [address] CONVERGYS Next Of Kin [address] [place] [address] [place] Next Of Kin [address] [place] [address] NAPOLEON BLANCO Next Of Kin [address] [place] [address] Geraldo LEONARD Next Of Kin [address] [place] [address] keysha leonard ECON [address] [place] [address] Unavailable Geraldo LEONARD ECON [address] [place] [address] Unavailable Re-disclosure Warning The records that you are [...] is protected by Article 27-F of the [facility] Public Health law. If you continue you may have access to information: Regarding HIV / AIDS; Provided by facilities licensed or operated by the [facility] Office of Mental Health; or Provided by the [facility] Office for People With Developmental Disabilities. If such information is present, then the following [facility] mandated warning applies: This information has [...] law may result in a fine or usp sentence or both. A general authorization for the release of medical or other information is NOT sufficient authorization for further disc losure. Family History Family Member Name Family Member Gender Family Member Status Date o f Status Description Data Source(s) Unknown Unknown Problem MEDENT ([facility], ) Unknown Unknown Problem MEDENT ([facility]) Encounters Encounter Providers Location Date Indications Data Source(s ) [place] [address] [facility] [place] [address] 11/11/2020 12:00:00 AM EDT eCW1 ([facility]) Medications Medication Brand Name Start Date Product Form Dose Route Admi nistrative Instructions Pharmacy Instructions Status Indications Reaction Description Data Source(s) NITROFURANTOIN, MACROCRYSTALS 25 MG / Ni trofurantoin, Monohydrate 75 MG Oral Capsule 100 mg NITROFURANTOIN MONOHYD/M-CRYST 06/21/2020 12:00:00 AM EDT ca psule 14 TAKE ONE CAPSULE BY MOUTH TWICE A DAY FOR 7 DAYS TAKE ONE CAPSULE BY MOUTH TWICE A DAY FOR 7 DAYS SOLD: 06/21/2020 [facility] 150 mg 01/12/2020 12:00:00 AM EST tablet 2 TAKE ONE TABLET BY MOUTH ONCE FOR ONE DAY TAKE ONE TABLET BY MOUTH ONCE FOR ONE DAY SOLD: 01/12/2020 [facility] 150 mg 01/12/2020 12:00:00 AM EST tablet 2 TAKE ONE TABLET BY MOUTH ONCE FOR ONE DAY TAKE ONE TABLET BY MOUTH ONCE FOR ONE DAY SOLD: 12/02/2020 [facility] Cephalexin 500 MG Oral Capsule CEPHALEXIN 01/01/2020 12:00:00 AM EDT capsule 21 TAKE ONE CAPSULE BY MOUTH THREE TIMES A DAY FOR 7 DAYS TAKE ONE CAPSULE BY MOUTH THREE TIMES A DAY FOR 7 DAYS SOLD: 01/01/2020 [facility] Insurance Providers Payer name Policy type / Coverage type Policy ID Covered democrat ID Covered democrat's relationship to larsen Policy Larsen Plan Information [facility] Maintenance Organization ([facility] [id number] Self [id number] [facility] Maintenance Organization ([facility]) [id number] Self [id number] [facility] ([facility]) [id number] [facility] [id number] SP [id number] [facility] Health Maintenance Organization ([facility]) [id number] Self [id number] SELF PAY O [id number] S [id number] [facility] O [id number] S [id number] [facility] Health Maintenance Organization ([facility]) [id number] Self MEDICAID [id number] SP [id number] R [facility] SP [id number] [facility] [id number] SP [id number] [facility] [id number] SP [id number] SELF PAY ONLY [id number] SP [id number] Problems, Conditions, and Diagnoses No Information Surgeries/Procedures No Information Results ID Date Data Source [id number] 06/07/2020 12:00:00 AM EDT [facility] Name Value Range Interpretation Code Description Data Libertad rce(s) Supporting Document(s) SARS-CoV-2 (COVID-19) RNA [Presence] in Respiratory specimen by LYNNE with probe detection Not Detected [facility] This lab was ordered by [facility] and reported by [employer] ID Date Data Source [id number] 03/11/2020 12:00:00 AM EST [facility] Name Value Range Interpretation Code Description Data Libertad rce(s) Supporting Document(s) SARS-CoV2 Rapid Antigen Negative [facility] This lab was ordered by [facility] and reported by [facility]. Procedure Social History Code Duration Value Status Description Data Source(s ) Smoking 11/11/2020 12:00:00 AM EDT Never Smoker completed Never S moker eCW1 ([facility]) Vital Signs ID Date Data Source UNK Name Value Range Interpretation Code Description Data Source(s) Systolic blood pressure 116 mm[Hg] 116 mm[Hg] e CW1 ([facility]) Body weight 180 [lb_av] 180 [lb_av] eCW1 ([facility]) Body weight 81.65 kg 81.65 kg W1 ([facility]) Body height 66 [in_i] 66 [in_i] eCW1 ([facility]) Body mass index (BMI) [Ratio] 29.05 kg/m2 29.05 kg/m2 eCW1 ([facility]) Heart rate 71 /min 71 /min eCW1 ([facility]) Respiratory rate 17 /min 17 /min eCW1 ([facility]) Body temperature 97.1 [degF] 97.1 [degF] eCW1 ( [facility]) Diastolic blood pressure 60 mm[Hg] 60 mm[Hg] eCW1 ([facility])
[2021-01-26 08:23] LABS: BASO % 0.7 % (0.0-1.0); EOS # 0.1 10^3/uL (0.0-0.5); EOS % 0.9 % (0.0-3.0); HEMATOCRIT 41.1 % (36.0-47.0); HEMOGLOBIN 13.4 g/dl (12.0-15.5); LYMPH % 33.7 % (24.0-44.0); MEAN CORPUSCULAR HEMOGLOBIN 30.2 pg (27.0-33.0); MEAN CORPUSCULAR HGB CONC 32.6 g/dl (32.0-36.5); MEAN CORPUSCULAR VOLUME 92.6 fl (80.0-96.0); MONO # 0.4 10^3/uL (0.0-0.8); MONO % 6.7 % (2.0-8.0); NEUTROPHILS # 3.4 10^3/uL (1.5-8.5); NEUTROPHILS % 57.8 % (36.0-66.0); PLATELET COUNT, AUTOMATED 251 10^3/uL (150-450); RED BLOOD COUNT 4.44 10^6/uL (4.00-5.40); WHITE BLOOD COUNT 5.8 10^3/uL (4.0-10.0)
--- OUTSIDE RECORDS SUMMARY | 2021-01-26 09:08 | CCD ---
Author Author [facility] Organization [facility] Address Unknown Phone Unavailable Support Name Relationship Address Phone [facility] Next Of Kin [address] [place] [address] KEYSHA LEONARD Next Of Kin [address] [place] [address] [place] [address] CONVERGYS Next Of Kin [address] [place] [address] STREAM Next Of Kin [address] [place] [address] NAPOLEON BLANCO Next Of Kin [address] [place] [address] Geraldo LEONARD Next Of Kin [address] [place] [address] keysha leonard ECON [address] [place] [address] Unavailable Geraldo LEONARD ECON [address] [place] [address] Unavailable Re-disclosure Warning The records that you [...] is protected by Article 27-F of the [facility] Public Health law. If you continue you may have access to information: Regarding HIV / AIDS; Provided by facilities licensed or operated by the [facility] Office of Mental Health; or Provided by the [facility] Office for People With Developmental Disabilities. If such information is present, then the following [facility] mandated warning applies: This information [...] law may result in a fine or fdc sentence or both. A general authorization for the release of medical or other information is NOT sufficient authorization for further disc losure. Family History Family Member Name Family Member Gender Family Member Status Date o f Status Description Data Source(s) Unknown Unknown Problem MEDENT ([facility], ) Unknown Unknown Problem MEDENT ([facility]) Encounters Encounter Providers Location Date Indications Data Source(s ) [place]patient [address] [facility] [place] [address] 11/11/2020 12:00:00 AM EDT eCW1 ([facility]) Medications Medication Brand Name Start Date [...] type / Coverage type Policy ID Covered libertarian ID Covered libertarian's relationship to larsen Policy Larsen Plan Information [facility] Health Maintenance Organization ([facility]) [id number] Self [id number] [facility] Maintenance Organization ([facility]) [id number] Self [id number] [facility] ([facility]) [id number] Self [id number] [facility] [id number] SP [id number] [facility] Health Maintenance Organization ([facility]) [id number] Self [id number] SELF PAY O [id number] S [id number] [facility] O [id number] S [id number] [facility] Health Maintenance Organization ([facility]) [id number] Self MEDICAID [id number] SP [id number] R [facility] C[facility] [id number] SP [id number] [facility] [id number] SP [id number] [facility] [id number] SP [id number] SELF PAY ONLY [id number] SP [id number] Problems, Conditions, and Diagnoses No Information Surgeries/Procedures No Information Results ID Date Data Source [id number] 06/07/2020 12:00:00 AM EDT [facility] Name Value Range Interpretation Code Description Data Libertad rce(s) Supporting Document(s) SARS-CoV-2 (COVID-19) RNA [Presence] in Respiratory specimen by LYNNE with probe detection Not Detected [facility] This lab was ordered by [facility] and reported by [email or web address] ID Date Data Source [id number] 03/11/2020 12:00:00 AM EST [facility] Name Value Range Interpretation Code Description Data Libertad rce(s) Supporting Document(s) SARS-CoV2 Rapid Antigen Negative [facility] This lab was ordered by [facility] and reported by [facility]. Procedure Social History Code Duration Value Status Description Data Source(s ) Smoking 11/11/2020 12:00:00 AM EDT Never Smoker completed Never S moker eCW1 ([facility]) Vital Signs ID Date Data Source UNK Name Value Range Interpretation Code Description Data Source(s) Systolic blood pressure 116 mm[Hg] 116 mm[Hg] e CW1 ([facility]) Body weight 180 [lb_av] 180 [lb_av] eCW1 ([facility]) Diastolic blood pressure 60 mm[Hg] 60 mm[Hg] eCW1 ([facility]) Body weight 81.65 kg 81.65 kg eCW1 ([facility]) Body height 66 [in_i] 66 [in_i] eCW1 ([facility]) Body mass index (BMI) [Ratio] 29.05 kg/m2 29.05 kg/m2 eCW1 ([facility]) Heart rate 71 /min 71 /min eCW1 ([facility]) Respiratory rate 17 /min 17 /min eCW1 ([facility]) Body temperature 97.1 [degF] 97.1 [degF] eCW1 ( [facility])
--- NOTE | 2021-01-26 09:37 | REP ---
INDICATION: vaginal bleeding, +home preg quant 244 COMPARISON: None. TECHNIQUE: Transabdominal and transvaginal 1st trimester obstetrical ultrasound with color Doppler evaluation. FINDINGS: Anteverted uterus measures 8.5 x 4.1 x 4.6 cm. No intrauterine is identified. A 1.1 x 1.1 x 0.8 cm solid lesion is identified along the right-side of the uterus/adnexa and separate from the ovary itself which is concerning for possible ectopic although no obvious significant surrounding hypervascularity is definitely identified. Right ovary measures 2.7 x 1.3 x 2.1 cm (RI 0.53) and includes complex presumed corpus luteal cyst measuring 1.4 x 1.3 x 0.8 cm. Left ovary measures 2.5 x 1.2 x 1.3 cm (RI 0.61) and appears normal. No pelvic fluid. IMPRESSION: 1. No intrauterine . 2. 1.1 cm solid mass in the right adnexa separate from the uterus and ovary is identified and ectopic cannot definitively be excluded. Close clinical observation and correlation with serial HCG levels is required. <Electronically signed by Eduardo Franklin > 01/26/21 0921
[2021-01-26 10:30] VITALS: BP 135/77
--- NOTE | 2021-01-27 09:40 | ED PDOC ---
Post-Departure Follow-Up radiology report faxed to Brenda Palm MD Jan 27, 2021 09:40
== END 2021-01-26 10:40 | disposition home or self-care (01) ==
LOC: M ED 07:32
DX: O20.8 Other hemorrhage in early pregnancy (principal)

== ENCOUNTER → 2021-01-31 | Outpatient (CLI) | payer OTHER ==
[~2021-01-31] MED LIST changes: -CEFD1CAP8 PO; +CEFD300C41 PO; +PRENTAB53 PO
== END ==
LOC: M WUC 08:26
PROVIDERS: ATTEND Physician Assistant Medical
DX: O46.90 Antepartum hemorrhage, unspecified, unspecified trimester (principal)

== ENCOUNTER → 2021-02-02 | Outpatient (CLI) | payer OTHER | LOC: M WUC 13:19 | PROVIDERS: ATTEND Advanced Practice Midwife | DX: O20.9 Hemorrhage in early pregnancy, unspecified (principal) ==

== ENCOUNTER → 2021-02-09 | Outpatient (CLI) | payer OTHER ==
[~2021-02-09] MED LIST changes: +CEFD1CAP8 PO; -CEFD300C41 PO
== END ==
LOC: M WUC 11:08
PROVIDERS: ATTEND Advanced Practice Midwife
DX: O20.9 Hemorrhage in early pregnancy, unspecified (principal)

== ENCOUNTER → 2021-02-16 | Outpatient (REF) | payer OTHER | LOC: M PLALAB 14:54 | PROVIDERS: ATTEND Advanced Practice Midwife | DX: O03.9 Complete or unspecified spontaneous abortion without complication (principal); Z53.9 Procedure and treatment not carried out, unspecified reason ==

== ENCOUNTER → 2021-02-17 | Outpatient (CLI) | payer OTHER ==
[~2021-02-17] MED LIST changes: -CEFD1CAP8 PO; +CEFD300C41 PO
== END ==
LOC: M WUC 11:12
PROVIDERS: ATTEND Advanced Practice Midwife
DX: O03.9 Complete or unspecified spontaneous abortion without complication (principal)

== ENCOUNTER 2021-04-08 14:38 | Emergency (ER) | payer OTHER ==
[~2021-04-08] VITALS: Ht 167.6 cm; Wt 91.6 kg
[2021-04-08 15:07] LABS: BASO # 0.1 10^3/uL (0.0-0.2); BASO % 0.7 % (0.0-1.0); EOS # 0.1 10^3/uL (0.0-0.5); HEMATOCRIT 40.3 % (36.0-47.0); HEMOGLOBIN 13.1 g/dl (12.0-15.5); LYMPH # 2.1 10^3/uL (1.5-5.0); LYMPH % 29.6 % (24.0-44.0); MEAN CORPUSCULAR HEMOGLOBIN 30.4 pg (27.0-33.0); MEAN CORPUSCULAR HGB CONC 32.5 g/dl (32.0-36.5); MEAN CORPUSCULAR VOLUME 93.5 fl (80.0-96.0); MONO # 0.4 10^3/uL (0.0-0.8); NEUTROPHILS # 4.4 10^3/uL (1.5-8.5); NEUTROPHILS % 62.6 % (36.0-66.0); PLATELET COUNT, AUTOMATED 254 10^3/uL (150-450); RED BLOOD COUNT 4.31 10^6/uL (4.00-5.40)
[2021-04-08 17:19] VITALS: BP 118/72
== END 2021-04-08 17:18 | disposition home or self-care (01) ==
LOC: M ED 14:38
DX: O20.0 Threatened abortion (principal); I10 Essential (primary) hypertension; Z87.59 Personal history of other complications of pregnancy, childbirth and the puerperium; Z87.448 Personal history of other diseases of urinary system; Z87.442 Personal history of urinary calculi

== ENCOUNTER → 2021-04-10 | Outpatient (CLI) | payer OTHER | LOC: M LAB 14:13 | PROVIDERS: ATTEND Physician Assistant Medical | DX: O20.0 Threatened abortion (principal) ==

== ENCOUNTER → 2021-05-02 | Outpatient (CLI) | payer OTHER | LOC: M WUC 10:39 | PROVIDERS: ATTEND Obstetrics & Gynecology | DX: O02.1 Missed abortion (principal) ==

== ENCOUNTER → 2021-05-09 | Outpatient (CLI) | payer OTHER ==
[2021-05-09 16:11] LABS: HCG, SERUM QUALITATIVE POSITIVE (NEGATIVE)
[2021-05-10 11:58] LABS: HCG, SERUM QUANTITATIVE 868 MIU/ML
== END ==
LOC: M WUC 13:16
PROVIDERS: ATTEND Obstetrics & Gynecology
DX: Z32.01 Encounter for pregnancy test, result positive (principal)

== ENCOUNTER → 2021-05-11 | Outpatient (CLI) | payer OTHER ==
[2021-05-11 15:52] LABS: HEMATOCRIT 39.3 % (36.0-47.0); HEMOGLOBIN 12.6 g/dl (12.0-15.5); MEAN CORPUSCULAR HEMOGLOBIN 29.9 pg (27.0-33.0); MEAN CORPUSCULAR HGB CONC 32.1 g/dl (32.0-36.5); MEAN CORPUSCULAR VOLUME 93.3 fl (80.0-96.0); PLATELET COUNT, AUTOMATED 246 10^3/uL (150-450); RED BLOOD COUNT 4.21 10^6/uL (4.00-5.40); WHITE BLOOD COUNT 6.6 10^3/uL (4.0-10.0)
[2021-05-11 16:28] LABS: ALBUMIN 3.9 GM/DL (3.2-5.2); ALT/SGPT 15 U/L (12-78); BILIRUBIN,TOTAL 0.5 MG/DL (0.2-1.0); BLOOD UREA NITROGEN 11 MG/DL (7-18); CARBON DIOXIDE LEVEL 29 MEQ/L (21-32); CHLORIDE LEVEL 110 MEQ/L (98-107); GLOMERULAR FILTRATION RATE > 60.0 (>60); GLUCOSE, FASTING 89 MG/DL (70-100); HCG, SERUM QUANTITATIVE 838 MIU/ML; POTASSIUM SERUM 3.3 MEQ/L (3.5-5.1); SODIUM LEVEL 142 MEQ/L (136-145)
== END ==
LOC: M WUC 13:21
PROVIDERS: ATTEND Obstetrics & Gynecology
DX: Z32.01 Encounter for pregnancy test, result positive (principal)

== ENCOUNTER → 2021-05-13 | Outpatient (CLI) | payer OTHER | LOC: M WHC 12:59 | PROVIDERS: ATTEND Obstetrics & Gynecology | DX: Z32.01 Encounter for pregnancy test, result positive (principal) ==

== ENCOUNTER → 2021-05-18 | Outpatient (CLI) | payer OTHER | LOC: M PLALAB 11:58 | PROVIDERS: ATTEND Obstetrics & Gynecology | DX: O03.4 Incomplete spontaneous abortion without complication (principal) ==

== ENCOUNTER → 2021-05-26 | Outpatient (REF) | payer OTHER | LOC: M LABWUC 13:55 | PROVIDERS: ATTEND Obstetrics & Gynecology | DX: O03.4 Incomplete spontaneous abortion without complication (principal) ==

== ENCOUNTER → 2021-06-02 | Outpatient (CLI) | payer OTHER | LOC: M WUC 12:59 | PROVIDERS: ATTEND Obstetrics & Gynecology | DX: O03.4 Incomplete spontaneous abortion without complication (principal) ==

== ENCOUNTER → 2021-06-09 | Outpatient (CLI) | payer OTHER | LOC: M WUC 11:08 | PROVIDERS: ATTEND Obstetrics & Gynecology | DX: O03.4 Incomplete spontaneous abortion without complication (principal) ==

== ENCOUNTER → 2021-06-29 | Outpatient (CLI) | payer OTHER | LOC: M WUC 13:23 | PROVIDERS: ATTEND Obstetrics & Gynecology | DX: O03.4 Incomplete spontaneous abortion without complication (principal) ==

== ENCOUNTER 2022-01-08 22:13 | Emergency (ER) | payer OTHER ==
[~2022-01-08] VITALS: Ht 167.6 cm; Wt 84.1 kg
[2022-01-08 22:51] LABS: BASO # 0.1 10^3/uL (0.0-0.2); BASO % 0.5 % (0.0-1.0); EOS # 0.1 10^3/uL (0.0-0.5); HEMATOCRIT 37.5 % (36.0-47.0); HEMOGLOBIN 12.3 g/dl (12.0-15.5); LYMPH # 2.4 10^3/uL (1.5-5.0); LYMPH % 25.7 % (24.0-44.0); MEAN CORPUSCULAR HEMOGLOBIN 30.1 pg (27.0-33.0); MEAN CORPUSCULAR HGB CONC 32.8 g/dl (32.0-36.5); MEAN CORPUSCULAR VOLUME 91.7 fl (80.0-96.0); MONO # 0.7 10^3/uL (0.0-0.8); MONO % 7.5 % (2.0-8.0); NEUTROPHILS # 6.1 10^3/uL (1.5-8.5); NEUTROPHILS % 65.1 % (36.0-66.0); PLATELET COUNT, AUTOMATED 229 10^3/uL (150-450); RED BLOOD COUNT 4.09 10^6/uL (4.00-5.40); WHITE BLOOD COUNT 9.3 10^3/uL (4.0-10.0)
[2022-01-08 23:30] LABS: ALBUMIN 3.4 GM/DL (3.2-5.2); ALT/SGPT 21 U/L (12-78); BILIRUBIN,DIRECT 0.1 MG/DL (0.0-0.2); BILIRUBIN,TOTAL 0.2 MG/DL (0.2-1.0); BLOOD UREA NITROGEN 10 MG/DL (7-18); CALCIUM LEVEL 10.5 MG/DL (8.5-10.1); CARBON DIOXIDE LEVEL 27 MEQ/L (21-32); CHLORIDE LEVEL 108 MEQ/L (98-107); CREATININE FOR GFR 0.72 MG/DL (0.55-1.30); GLOMERULAR FILTRATION RATE > 60.0 (>60); GLUCOSE, FASTING 94 MG/DL (70-100); LIPASE 86 U/L (73-393); POTASSIUM SERUM 3.5 MEQ/L (3.5-5.1); SODIUM LEVEL 141 MEQ/L (136-145); TOTAL PROTEIN 6.3 GM/DL (6.4-8.2)
[2022-01-09] MEDS ORDERED: MACR100C43 PO (02:06)
[2022-01-09 02:10] VITALS: BP 136/90
[2022-01-09 03:50] LABS: HCG, SERUM QUANTITATIVE 29180 MIU/ML
[2022-01-11] MEDS ORDERED: CEFD300C PO (11:36)
== END 2022-01-09 02:11 | disposition home or self-care (01) ==
LOC: M ED 22:13
DX: O99.891 Other specified diseases and conditions complicating pregnancy (principal); R10.9 Unspecified abdominal pain; Z3A.01 Less than 8 weeks gestation of pregnancy; O34.81 Maternal care for other abnormalities of pelvic organs, first trimester; N83.201 Unspecified ovarian cyst, right side; Z87.442 Personal history of urinary calculi

== ENCOUNTER → 2022-03-09 | Outpatient (CLI) | payer OTHER ==
[~2022-03-09] MED LIST changes: +CEFD300C PO; +MACR100C43 PO
[2022-03-09 16:36] LABS: HEMATOCRIT 37.2 % (36.0-47.0); HEMOGLOBIN 12.2 g/dl (12.0-15.5); MEAN CORPUSCULAR HEMOGLOBIN 30.3 pg (27.0-33.0); MEAN CORPUSCULAR HGB CONC 32.8 g/dl (32.0-36.5); MEAN CORPUSCULAR VOLUME 92.3 fl (80.0-96.0); PLATELET COUNT, AUTOMATED 268 10^3/uL (150-450); RED BLOOD COUNT 4.03 10^6/uL (4.00-5.40); WHITE BLOOD COUNT 9.5 10^3/uL (4.0-10.0)
[2022-03-09 17:33] LABS: HIV 1&2 SCREEN CENTAUR NEGATIVE (NEGATIVE)
[2022-03-09 17:41] LABS: HEPATITIS C VIRUS ABY INDEX 0.1 INDEX (<0.8)
[2022-03-09 17:59] LABS: GC DNA AMPLIFICATION NEGATIVE (NEGATIVE)
== END ==
LOC: M WUC 11:45
PROVIDERS: ATTEND Obstetrics & Gynecology
DX: Z34.81 Encounter for supervision of other normal pregnancy, first trimester (principal)

== ENCOUNTER 2022-03-19 08:07 | Emergency (ER) | payer OTHER ==
[~2022-03-19] VITALS: Ht 167.6 cm; Wt 93.3 kg
[2022-03-19 11:42] LABS: BASO % 0.2 % (0.0-1.0); EOS % 0.2 % (0.0-3.0); HEMOGLOBIN 11.9 g/dl (12.0-15.5); LYMPH # 1.4 10^3/uL (1.5-5.0); LYMPH % 12.3 % (24.0-44.0); MEAN CORPUSCULAR HEMOGLOBIN 30.4 pg (27.0-33.0); MEAN CORPUSCULAR HGB CONC 33.1 g/dl (32.0-36.5); MEAN CORPUSCULAR VOLUME 91.8 fl (80.0-96.0); MONO # 0.4 10^3/uL (0.0-0.8); NEUTROPHILS # 9.7 10^3/uL (1.5-8.5); PLATELET COUNT, AUTOMATED 251 10^3/uL (150-450); RED BLOOD COUNT 3.92 10^6/uL (4.00-5.40); WHITE BLOOD COUNT 11.5 10^3/uL (4.0-10.0)
[2022-03-19 12:08] LABS: ALBUMIN 3.4 G/DL (3.2-5.2); ALKALINE PHOSPHATASE 66 U/L (46-116); ALT/SGPT 16 U/L (7.0-40); AST/SGOT 13 U/L (<34); BILIRUBIN,DIRECT 0.1 MG/DL (<0.4); BILIRUBIN,TOTAL 0.5 MG/DL (0.3-1.2); BLOOD UREA NITROGEN 7 MG/DL (9-23); CALCIUM LEVEL 10.7 MG/DL (8.5-10.1); CARBON DIOXIDE LEVEL 26 MMOL/L (20-31); CHLORIDE LEVEL 105 MMOL/L (98-107); CREATININE FOR GFR 0.57 MG/DL (0.55-1.30); GLOMERULAR FILTRATION RATE > 60.0 (>60); GLUCOSE, FASTING 86 MG/DL (60-100); POTASSIUM SERUM 3.8 MMOL/L (3.5-5.1); SODIUM LEVEL 139 MMOL/L (136-145); TOTAL PROTEIN 6.4 G/DL (5.7-8.2)
[2022-03-19 12:24] VITALS: BP 106/58
== END 2022-03-19 12:39 | disposition home or self-care (01) ==
LOC: M ED 08:07
DX: O26.92 Pregnancy related conditions, unspecified, second trimester (principal); R10.9 Unspecified abdominal pain; Z3A.16 16 weeks gestation of pregnancy; Z79.899 Other long term (current) drug therapy

== ENCOUNTER → 2022-04-12 | Outpatient (CLI) | payer OTHER | LOC: M WHC 09:29 | PROVIDERS: ATTEND Obstetrics & Gynecology | DX: Z34.92 Encounter for supervision of normal pregnancy, unspecified, second trimester (principal); Z36.89 Encounter for other specified antenatal screening; Z3A.19 19 weeks gestation of pregnancy ==

== ENCOUNTER → 2022-04-19 | Outpatient (REF) | payer OTHER ==
[2022-04-19 14:10] LABS: TOTAL PROTEIN,RANDOM URINE 15.1 MG/DL (0.0-14.0)
== END ==
LOC: M SFHCWAGY 12:54
PROVIDERS: ATTEND Obstetrics & Gynecology
DX: Z87.59 Personal history of other complications of pregnancy, childbirth and the puerperium (principal)

== ENCOUNTER → 2022-05-05 | Outpatient (CLI) | payer OTHER | LOC: M WHC 12:01 | PROVIDERS: ATTEND Obstetrics & Gynecology | DX: Z36.2 Encounter for other antenatal screening follow-up (principal); Z3A.23 23 weeks gestation of pregnancy; O32.2XX0 Maternal care for transverse and oblique lie, not applicable or unspecified ==

== ENCOUNTER → 2022-06-09 | Outpatient (CLI) | payer OTHER ==
[2022-06-09 16:20] LABS: HEMATOCRIT 31.8 % (36.0-47.0); HEMOGLOBIN 10.2 g/dl (12.0-15.5); MEAN CORPUSCULAR HEMOGLOBIN 31.2 pg (27.0-33.0); MEAN CORPUSCULAR HGB CONC 32.1 g/dl (32.0-36.5); MEAN CORPUSCULAR VOLUME 97.2 fl (80.0-96.0); PLATELET COUNT, AUTOMATED 269 10^3/uL (150-450); RED BLOOD COUNT 3.27 10^6/uL (4.00-5.40); WHITE BLOOD COUNT 10.7 10^3/uL (4.0-10.0)
[2022-06-09 17:36] LABS: GC DNA AMPLIFICATION NEGATIVE (NEGATIVE)
== END ==
LOC: M WUC 09:36
PROVIDERS: ATTEND Specialist
DX: Z34.82 Encounter for supervision of other normal pregnancy, second trimester (principal)

== ENCOUNTER → 2022-08-01 | Outpatient (REF) | payer OTHER | LOC: M SFHCWAGY 17:47 | PROVIDERS: ATTEND Specialist | DX: Z36.85 Encounter for antenatal screening for Streptococcus B (principal) ==

== ENCOUNTER 2022-08-19 07:29 | Inpatient (IN) | payer OTHER ==
[2022-08-19] VITALS (14 sets, daily range): BP systolic 117–153; BP diastolic 65–99
[~2022-08-19] VITALS: Ht 167.6 cm; Wt 102.4 kg
[2022-08-19] MEDS ORDERED: ECOT81TA5 PO (07:45)
[2022-08-19 08:23] LABS: HEMATOCRIT 32.1 % (36.0-47.0); HEMOGLOBIN 10.7 g/dl (12.0-15.5); MEAN CORPUSCULAR HEMOGLOBIN 31.2 pg (27.0-33.0); MEAN CORPUSCULAR HGB CONC 33.3 g/dl (32.0-36.5); MEAN CORPUSCULAR VOLUME 93.6 fl (80.0-96.0); PLATELET COUNT, AUTOMATED 248 10^3/uL (150-450); RED BLOOD COUNT 3.43 10^6/uL (4.00-5.40); WHITE BLOOD COUNT 11.6 10^3/uL (4.0-10.0)
[2022-08-19] MEDS ORDERED: METHYLERGONOVINE MALEATE 0.2MG/ML 1ML VIAL IM PRN (10:30)
[2022-08-19] MEDS ORDERED: CARBOPROST TROMETHAMINE 250 MCG/ML AMP IM PRN (10:30)
[2022-08-19] MEDS ORDERED: TRANEXAMIC ACID INJection 1,000 MG in NS 100 ML IV PRN (10:30)
[2022-08-19] MEDS: miSOPROStol 50MCG 1/2 TABLET PO SCH ×3 (10:57→20:43)
[2022-08-19] MEDS ORDERED: OXYTOCIN DRIP 30 UNITS in IV 1 EA IV SCH (21:35)
[2022-08-19] MEDS ORDERED: LR 1,000 ML IV SCH (21:35)
[2022-08-20] VITALS (18 sets, daily range): BP systolic 113–176; BP diastolic 55–90; O2SAT 96–97
[2022-08-20] MEDS ORDERED: EPIDURAL/PCA KEYS XX PRN (00:20)
[2022-08-20] MEDS ORDERED: FENTANYL/ROPIVACAINE/NACL BAG 100 ML EPIDURAL SCH (00:20)
[2022-08-20] MEDS ORDERED: diphenhydrAMINE 50MG/ML VIAL IV PRN (00:20)
[2022-08-20] MEDS ORDERED: NALOXONE INJ 0.4MG/1ML VIAL IV PRN (00:20)
[2022-08-20] MEDS ORDERED: ONDANSETRON 4MG 2ML VIAL IV PRN (00:20)
[2022-08-20] MEDS ORDERED: LR 500 ML IV PRN (00:20)
[2022-08-20] MEDS ORDERED: ePHEDrine SULFATE 25 MG/5 ML(5MG/ML) SYRINGE IVP PRN (00:20)
[2022-08-20] MEDS ORDERED: DOCUSATE SODIUM 100MG CAPSULE PO PRN (02:20)
[2022-08-20] MEDS ORDERED: ACETAMINOPHEN TAB 650MG DOSE (2X325MG) PO PRN (02:20)
[2022-08-20] MEDS ORDERED: DIBUCAINE 1% OINTMENT 30GM TOP PRN (02:20)
[2022-08-20] MEDS ORDERED: IBUPROFEN 600MG TAB PO PRN (02:20)
[2022-08-20] MEDS ORDERED: ACETAMINOPHEN 500 MG TAB PO PRN (02:20)
[2022-08-20] MEDS ORDERED: OXYTOCIN DRIP 30 UNITS in IV 1 EA IV SCH (02:20)
[2022-08-20] MEDS ORDERED: RHOGAM 300MCG (1500IU) INJ IM SCH (02:20)
[2022-08-20] MEDS ORDERED: IBUPROFEN 800 MG TAB PO PRN (02:20)
[2022-08-20] MEDS: PRENATAL VITAMINS CHEWABLE TABLET PO SCH (10:41)
[2022-08-21 05:53] VITALS: BP 119/73; O2SAT 97
[2022-08-21] MEDS: PRENATAL VITAMINS CHEWABLE TABLET PO SCH (09:05)
[2022-08-21] MEDS ORDERED: IBUP80TA PO (10:11)
[2022-08-21] MEDS ORDERED: ACET-683 PO (10:11)
[2022-08-22] MEDS ORDERED: MEASLES,MUMPS,RUBELLA VACCINE INJ (MMR-II) SC.IMMUN ONE (09:00)
== END 2022-08-21 11:27 | disposition home or self-care (01) | DRG 560 ==
LOC: M LDI 07:29 → M OBS 08-20 03:46
PROVIDERS: ADMIT Obstetrics & Gynecology; ATTEND Obstetrics & Gynecology
PROC: 3E0P7GC Introduction of Other Therapeutic Substance into Female Reproductive, Via Natural or Artificial Opening (ICD-10-PCS; 2022-08-19)
PROC: 10E0XZZ Delivery of Products of Conception, External Approach (ICD-10-PCS; principal; 2022-08-20)
DX: O13.4 Gestational [pregnancy-induced] hypertension without significant proteinuria, complicating childbirth (principal); Z37.0 Single live birth; Z3A.38 38 weeks gestation of pregnancy

== ENCOUNTER → 2023-01-29 | Outpatient (REF) | payer OTHER ==
[~2023-01-29] MED LIST changes: +ACET-683 PO; -CEFD300C41 PO; +CEFD300C42 PO; +ECOT81TA5 PO
== END ==
LOC: M SFHCWAGY 17:28
PROVIDERS: ATTEND Nurse Practitioner Family
DX: Z12.4 Encounter for screening for malignant neoplasm of cervix (principal)

== ENCOUNTER → 2023-09-15 | Outpatient (REF) | payer OTHER ==
[~2023-09-15] MED LIST changes: +CEFD1CAP9 PO; -CEFD300C42 PO; +ONDA-282 PO; -ONDA4TAB6 PO
== END ==
LOC: M WUC 18:54
PROVIDERS: ATTEND Physician Assistant
DX: R30.0 Dysuria (principal)

== ENCOUNTER → 2024-11-05 | Outpatient (CLI) | payer OTHER ==
[~2024-11-05] MED LIST changes: +ACET-897 PO; -FLOM0.4C39 PO; +KETO-204 PO; +SULF1TAB23 PO; +TAMS-18 PO
== END ==
LOC: M PLAIMG 11:04
PROVIDERS: ATTEND Nurse Practitioner Family
DX: N20.0 Calculus of kidney (principal); K42.9 Umbilical hernia without obstruction or gangrene; N13.1 Hydronephrosis with ureteral stricture, not elsewhere classified; K57.30 Diverticulosis of large intestine without perforation or abscess without bleeding